=== PATIENT | male | born 1975 | race Caucasian/White ===

== ENCOUNTER 2023-01-04 18:56 | Emergency (ER) | payer OTHER, SELFPAY ==
[2023-01-04 19:08] VITALS: BP 161/94; PULSE 98; RESP 16; TEMP 36.6; O2SAT 99; BMI 22.5
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
[2023-01-04] MEDS: MORPHINE 10 MG/ML inj IM (19:40)
== END 2023-01-04 21:05 | disposition home or self-care (01) ==
PROVIDERS: Emergency Provider Emergency Medicine Emergency Medical Services
DX: S42.001A Fracture of unspecified part of right clavicle, initial encounter for closed fracture (principal); V19.3XXA Pedal cyclist (driver) (passenger) injured in unspecified nontraffic accident, initial encounter
CPT/HCPCS: 73000; 96372; 99284; J2270

== ENCOUNTER 2023-01-05 14:18 | Outpatient (CLI) | payer OTHER, SELFPAY | END 2023-01-05 14:19 | disposition home or self-care (01) | PROVIDERS: Visit Provider Family Medicine | DX: S42.001A Fracture of unspecified part of right clavicle, initial encounter for closed fracture (principal) | CPT/HCPCS: 80048; 85025 ==

== ENCOUNTER 2023-01-08 06:56 | Day surgery (SDC) | payer OTHER, SELFPAY ==
[2023-01-08] VITALS (14 sets, daily range): BP systolic 106–152; BP diastolic 72–92; PULSE 49–93; RESP 12–18; TEMP 36.1–36.5; O2SAT 93–100; BMI 22.4
[2023-01-08] MEDS: OXYCODONE (CR) 10 MG TAB.ER.12H PO (07:15)
[2023-01-08] MEDS: CELECOXIB 200 MG CAPSULE PO (07:15)
[2023-01-08] MEDS: ACETAMINOPHEN 500 MG TABLET 1000 MG PO (07:15)
[2023-01-08] MEDS: LACTATED RINGERS 1000 ML 1,000 ML 100 ML IV ×2 (07:30→09:21)
[2023-01-08] MEDS: SODIUM CHLORIDE 0.9 % (FLUSH) 10 ML SYRINGE IVF (07:30)
--- NOTE | 2023-01-08 07:57 | W.ANESCHARGE ---
Anesthesia Charges Start Date/Time Anesthesia Start Date: 01/08/23 Anesthesia Start Time: 08:59 Stop Date/Time Anesthesia Stop Date: 01/08/23 Anesthesia Stop Time: 10:48
--- NOTE | 2023-01-08 08:15 | CRLHL7_ITS ---
For Patients: As a result of the Cures Act, medical imaging exams and procedure reports are released immediately into your electronic medical record. You may view this report before your referring provider. If you have questions, please contact your health care provider. Indication: ORIF RIGHT CLAVICLE Technique: One view right clavicle IMPRESSION: Status post open reduction internal fixation right clavicular fracture. Dictated by Ariel Sy MD @ 01/08/2023 10:35:21 AM (Electronically Signed)
[2023-01-08] MEDS: MIDAZOLAM HCL 1 MG/ML inj IVP (08:21)
[2023-01-08] MEDS: fentaNYL 100 MCG/2 ML inj IVP (08:21)
--- NOTE | 2023-01-08 08:33 | SUR.PREOP ---
TIME?OUT:?0820 PT/RN/MDA?VERIFICATION?OF?SURGICAL?SITE,?PROCEDURE,?AND?CONSENT OBTAINED?PRIOR?TO?INVASIVE?PROCEDURE.
[2023-01-08] MEDS: CEFAZOLIN 2 GM INJ IVP (09:12)
--- NOTE | 2023-01-08 09:38 | W.PM.NB ---
Nerve Block Nerve Block Time Seen by Provider: 08:21 Date Seen: 01/08/23 Type of block requested by surgeon for post-operative analgesia: supraclavicular Side: right Time out performed: Yes Verification of patient name: Yes Verification of date of : Yes Site marking: site marked Name of person performing procedure: Yury Continuous monitoring Was continuous monitoring of O2 sat, B/P, stripping shovel oiler, recorded every 15 minutes?: Yes Procedure Checklist: sterile prep, needles and gloves Ultrasound guided. Images saved: Yes Medications given in 5ml increments after negative aspiration: Ropivicaine %: 0.5 mL: 20 Needle gauge: 22 Decadron (mg): 10 Precedex (mcg): 25 Patient tolerated procedure well: Yes Block Charges Block Charge (with Pro Fee): Brachial Plexus Use of Ultrasound Machine for Block: Yes- US Guidance/pain block
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
--- NOTE | 2023-01-08 10:49 | W.ANESCHARGE ---
Anesthesia Charges Start Date/Time Anesthesia Start Date: 01/08/23 Anesthesia Start Time: 08:59 Stop Date/Time Anesthesia Stop Date: 01/08/23 Anesthesia Stop Time: 10:48
[2023-01-08] MEDS: MEPERIDINE 25 MG/ML INJ 12.5 MG IVP (11:07)
== END 2023-01-08 12:24 | disposition home or self-care (01) ==
PROVIDERS: PCP Family Medicine; Visit Provider Orthopaedic Surgery
PROC: (CPT 23515; principal; 2023-01-08 08:15)
DX: S42.021A Displaced fracture of shaft of right clavicle, initial encounter for closed fracture (principal); G89.18 Other acute postprocedural pain
CPT/HCPCS: 23515; 00450; 64415; 73000; 76942; A9270; C1713; J0330; J0690; J1100; J2175; J2250; J2405; J2704; J3010; J3490; J7120

== ENCOUNTER 2023-01-30 16:38 | Emergency (ER) | payer OTHER, SELFPAY ==
[2023-01-30 16:44] VITALS: BP 177/79; PULSE 70; RESP 18; TEMP 37; O2SAT 99; BMI 21.8
--- NOTE | 2023-01-30 16:57 | CRLHL7_ITS ---
For Patients: As a result of the Cures Act, medical imaging exams and procedure reports are released immediately into your electronic medical record. You may view this report before your referring provider. If you have questions, please contact your health care provider. Indication: Fall 3 weeks prior, clavicle surgery Comparison: Two view shoulder January 29, 2023 Technique: AP internal, external rotation, and scapular-Y views of the right shoulder were obtained Findings: Previously seen clavicle fracture status post internal fixation is again noted without evidence of hardware failure. No new acute osseous abnormality. The joint spaces are grossly preserved. The soft tissues are unremarkable. Impression: Postoperative changes status post internal fixation of the clavicle without evidence of hardware failure or displaced fracture. Dictated by Israel Hawkins MD @ 01/30/2023 6:07:03 PM (Electronically Signed)
--- NOTE | 2023-01-30 17:00 | ED.GENADULT ---
HPI - General Adult General Chief complaint: Shoulder Injury/Pain Stated complaint: shoulder pain Time Seen by Provider: 01/30/23 16:42 History of Present Illness HPI narrative: Patient is a 47 year white male who had a recent repair of his right clavicle with a plate. He had an x-ray yesterday. Things were going well. He has had some swelling over the clavicle on the right. Today he was putting in a mode to a microwave and felt a popping sensation more in his lateral shoulder. He was concerned about this and came to the ED. The patient is unable to fully extend his arm forward with shoulder flexion and does not have significant soft tissue swelling does feel like he is able to control his hand and arm well. Does not really have pain about the clavicular fracture that is different than it has been. He would like an x-ray as he is concerned about his shoulder and clavicle. Related Data Home Medications Medication Instructions Recorded Confirmed omeprazole 20 mg capsule,delayed 20 mg PO 3XD 01/04/23 01/29/23 release Previous Rx's Medication Instructions Recorded oxycodone 5 mg tablet 2.5 - 5 mg (0.5 - 1 x 5 mg) PO 01/12/23 Q4-6H PRN pain #30 tabs Allergies Allergy/AdvReac Type Severity Reaction Status Date / Time No Known Drug Allergies Allergy Verified 01/29/23 09:27 Review of Systems Status of ROS: Reports: 6 or more systems reviewed and unremarkable except as noted in History and below [facility] Medical History GERD (gastroesophageal reflux disease) ?K21.9 - Gastro-esophageal reflux disease without esophagitis (ICD-10) Right clavicle fracture ?S42.001A - Fracture of unspecified part of right clavicle, initial encounter for closed fracture (ICD-10) Surgical History History of open reduction and internal fixation (ORIF) procedure (01/08/23) ?Z98.890 - Other specified postprocedural states (ICD-10) History of foot surgery ?Z98.890 - Other specified postprocedural states (ICD-10) Social History 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: , 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, 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 [employer] 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: Former smoker Do you use any of these nicotine containing products: None How often do you have a drink containing alcohol: monthly or less Alcohol type: beer How many standard drinks containing alcohol do you have on a typical day: 1 or 2 How often do you have six or more drinks on one occasion: Never AUDIT-C Alcohol total score: 1 Non-prescribed substance use: denies use Caffeine: Yes service: No Exam Narrative: Exam Narrative: Objective: Elevated blood pressure, afebrile Right shoulders shows no dislocation, no bruising noted, he has got prominent soft tissue swelling over his clavicle on the right. No evidence of redness or infection. She got normal CMS in his right upper extremity. Does report he has pain with extending his arm Const: Vital Signs, click to edit/add: Vital Signs - 24 hr 01/30/23 16:44 Temperature 98.6 F Pulse Rate [Right Pulse Oximeter] 70 Respiratory Rate 18 Blood Pressure [Ri ght Upper Arm] 177/79 H Pulse Oximetry 99 Oxygen Delivery Me thod Room Air Course Vital Signs Vital signs: Initial Vital Signs Temperature 98.6 F 01/30/23 16:44 Temperature Source Temporal Artery Scan 01/30/23 16:44 Pulse Rate 70 01/30/23 16:44 Respiratory Rate 18 01/30/23 16:44 Blood Pressure 177/79 H 01/30/23 16:44 Blood Pressure Mean 111 H 01/30/23 16:44 Blood Pressure Position Sitting 01/30/23 16:44 Pulse Oximetry 99 01/30/23 16:44 Oxygen Delivery Method Room Air 01/30/23 16:44 Vital Signs Temperature 98.6 F 01/30/23 16:44 Pulse Rate 70 01/30/23 16:44 Respiratory Rate 18 01/30/23 16:44 Blood Pressure 177/79 H 01/30/23 16:44 Pulse Oximetry 99 01/30/23 16:44 Oxygen Delivery Method Room Air 01/30/23 16:44 Temperature 98.6 F 01/30/23 16:44 Pulse Rate 70 01/30/23 16:44 Respiratory Rate 18 01/30/23 16:44 Blood Pressure 177/79 H 01/30/23 16:44 Pulse Oximetry 99 01/30/23 16:44 Oxygen Delivery Method Room Air 01/30/23 16:44 Medical Decision Making MDM Narrative Medical decision making narrative: [age] year white male who is postop right clavicle plating, with a reassuring x-ray yesterday in orthopedic office. Now with they probable shoulder some brief subluxation or strain that is concerning to him given his recent surgery. We discussed treatment options including observation icing and sling and then follow up with Ortho in 3-5 days, this would be my recommendation. Patient reports he would like an x-ray of the area to make sure there is nothing is out of place. This will be accomplished. Will take an x-ray of his clavicle and shoulder. If this looks reassuring then sling as needed gentle range of motion out of the sling, icing, anti-inflammatory such as ibuprofen or Aleve would be helpful. Addendum 5:27 p.m. by my review his x-ray looks like postoperative change no acute changes, recommend the sling, icing, anti-inflammatory. Recheck with Ortho in 3-5 days. Discharge Plan Discharge Clinical Impression: Right clavicle fracture, Right shoulder strain Patient Disposition: Home, Self-Care Condition: Stable Additional Instructions: Recommend use her sling but do some arm circles out of it couple times a day, ice would be recommended 5-10 minutes 3 to 4 times a day, anti-inflammatory form of Advil or Aleve as needed. Would recommend a repeat PT appointment with the orthopedic office in 3-5 days. Return to ED sooner problems or concerns. Activity Level: Light activity Discharge Diet: Regular Prescriptions: No Action omeprazole 20 mg capsule,delayed release(DR/EC) 20 mg PO 3XD oxycodone 5 mg tablet 2.5 - 5 mg PO Q4-6H PRN (Reason: pain) Qty: 30 0RF Rx Instructions: Minimize discontinue soon as possible. Follow Up/Referrals: Ariel Herzog MD [Primary Care Provider] - Stand Alone Forms: [employer] Info Instructions
== END 2023-01-30 17:44 | disposition home or self-care (01) ==
LOC: ED 17:38
PROVIDERS: Emergency Provider Family Medicine; PCP Family Medicine
DX: S42.001A Fracture of unspecified part of right clavicle, initial encounter for closed fracture (principal); X50.1XXA Overexertion from prolonged static or awkward postures, initial encounter
CPT/HCPCS: 73030; 99283; 99284